=== PATIENT | female | born 1965 | race Caucasian/White ===

== ENCOUNTER 2017-10-13 16:21 | Emergency (ER) | payer MEDICAID | END 2017-10-13 17:50 | disposition home or self-care (01) | LOC: E/R 16:21 | DX: M79.89 Other specified soft tissue disorders (principal) | CPT/HCPCS: 73130; 73130-RT; 99283-25 ==

== ENCOUNTER 2018-12-03 16:54 | Emergency (ER) | payer OTHER, MEDICAID | END 2018-12-03 18:58 | disposition home or self-care (01) | LOC: FTE 16:54 | DX: M77.9 Enthesopathy, unspecified (principal) | CPT/HCPCS: 99282; Z7502 ==